=== PATIENT | male | born 1955 | race Caucasian/White ===

== ENCOUNTER 2016-07-17 05:55 | Day surgery (SDC) | payer OTHER ==
[2016-07-17] MEDS ORDERED: LACTATED RINGERS 1,000 ML ONE (06:37)
[2016-07-17] MEDS ORDERED: IV START KIT ONE (06:37)
[2016-07-17] MEDS ORDERED: FENTANYL 250 MCG/5 ML AMP ONE (06:56)
[2016-07-17] MEDS ORDERED: MIDAZOLAM HCL 5 MG/5 ML VIAL ONE (06:56)
[2016-07-17] MEDS ORDERED: MIDAZOLAM HCL 5 MG/5 ML VIAL IV PRN (07:00)
[2016-07-17] MEDS ORDERED: LACTATED RINGERS 1,000 ML IV SCH (07:00)
[2016-07-17] MEDS ORDERED: FENTANYL 250 MCG/5 ML AMP IV PRN (07:00)
--- NOTE | 2016-07-19 14:30 | SURGPATH ---
[facility] [address] [place] [id number] Patient Name: ANGEL SANTOS MR#: [id number] : 1955 Gender: M Specimen #: [id number] Collected: 07/17/2016 Received: 07/18/2016 Reported: 07/19/2016 Submitting Phys: COOPER MANRIQUEZ Copy To Phys: [facility] Clinical History / Pre-Operative Diagnosis: SURVEILLANCE Specimen Source / Surgical Procedure Performed: RECTAL POLYP Interpretation: RECTUM, BIOPSY: - TUBULAR ADENOMA. - NO EVIDENCE OF MALIGNANCY. Electronically Signed Out Skyler Villalba M.D., Ph.D. Gross Description: The specimen is received in a formalin filled container labeled with the patient's name and "rectal polyp". A polypoid markham biopsy is 0.4 x 0.4 x 0.3 cm. Totally embedded in one cassette. Salvador Montelongo, P.A. Microscopic Description: Examination of multiple levels from the rectum biopsy shows a single fragment of colonic mucosa with adenomatous changes within glands and tubules. There is no evidence of malignancy. 1: 34448 D12.8
== END 2016-07-17 08:38 | disposition home or self-care (01) ==
LOC: SDC 05:55
PROVIDERS: ATTEND Family Medicine
PROC: 0DBP8ZZ Excision of Rectum, Via Natural or Artificial Opening Endoscopic (ICD-10-PCS; principal; 2016-07-17)
DX: Z12.11 Encounter for screening for malignant neoplasm of colon (principal); D12.8 Benign neoplasm of rectum; E78.00 Pure hypercholesterolemia, unspecified; Z79.899 Other long term (current) drug therapy